=== PATIENT | male | born 1975 | race African-American/Black ===

== ENCOUNTER 2017-08-19 09:50 | Emergency (ER) | payer MEDICAID ==
[~2017-08-19] VITALS: Ht 170.2 cm; Wt 143.0 kg
[2017-08-19] MEDS ORDERED: HYDR12.529 PO (10:02)
[2017-08-19] MEDS ORDERED: ASPI-1159 PO (10:02)
[2017-08-19] MEDS ORDERED: AMLO2.5T45 PO (10:02)
[2017-08-19 14:51] VITALS: BP 151/90
== END 2017-08-19 14:57 | disposition home or self-care (01) ==
LOC: ER 09:50
DX: R22.0 Localized swelling, mass and lump, head (principal); I10 Essential (primary) hypertension; F17.200 Nicotine dependence, unspecified, uncomplicated; F12.10 Cannabis abuse, uncomplicated; Z79.82 Long term (current) use of aspirin
CPT/HCPCS: 76536; 99284

== ENCOUNTER 2022-10-04 14:37 | Emergency (ER) | payer MEDICAID ==
[~2022-10-04] VITALS: Ht 170.2 cm; Wt 154.0 kg
[~2022-10-04 14:37] MED LIST: AMLO2.5T45 PO; ASPI-1497 PO; HYDR12.529 PO
[2022-10-04 14:47] VITALS: BP 189/102
[2022-10-04] MEDS ORDERED: LACTULOSE 20G/30ML UDC PO ONE (15:15)
[2022-10-04] MEDS ORDERED: DOCU-155 MT (15:16)
[2022-10-04] MEDS ORDERED: POLY17PO3 MT (15:16)
[2022-10-04] MEDS ORDERED: [UNRECOGNIZED DRUG - CODE] RC (15:16)
== END 2022-10-04 15:32 | disposition home or self-care (01) ==
LOC: ER 14:37
DX: K59.00 Constipation, unspecified (principal); F12.10 Cannabis abuse, uncomplicated; I12.9 Hypertensive chronic kidney disease with stage 1 through stage 4 chronic kidney disease, or unspecified chronic kidney disease; N18.9 Chronic kidney disease, unspecified
CPT/HCPCS: 99283

== ENCOUNTER 2022-10-14 17:16 | Emergency (ER) | payer MEDICAID, OTHER ==
[~2022-10-14] VITALS: Ht 170.2 cm; Wt 149.7 kg
[~2022-10-14 17:16] MED LIST changes: +DOCU-155 MT; +POLY17PO3 MT; +[UNRECOGNIZED DRUG - CODE] RC
[2022-10-14 17:29] VITALS: O2SAT 98
[2022-10-14 19:25] LABS: BASOPHILS % 0.9 % (0.0-2.0); EOSINOPHILS % 1.4 % (0.0-5.0); HEMATOCRIT. 40.8 % (42.0-52.0); HEMOGLOBIN. 13.7 g/dL (14.0-18.0); LYMPHOCYTES % 32.5 % (20.0-50.0); MEAN CORPUSCULAR HEMOGLOBIN 29.7 pg (28.0-32.0); MEAN CORPUSCULAR VOLUME 88.7 fL (80.0-94.0); MEAN PLATELET VOLUME 10.5 fl (7.4-10.4); MONOCYTES % 10.6 % (2.0-8.0); NEUTROPHILS % 54.6 % (40.0-76.0); PLATELET 265 x1000/uL (130-400); RED CELL DISTRIBUTION WIDTH 14.1 % (11.6-14.6)
[2022-10-14 19:32] LABS: CHLORIDE 105 mEq/L (98-107)
[2022-10-14] MEDS ORDERED: LACTULOSE 20G/30ML UDC PO ONE (20:30)
[2022-10-14] MEDS ORDERED: POLYETHYLENE GLYCOL 3350 (17GM) 1 DOSE PACK PO ONE (20:30)
[2022-10-14] MEDS ORDERED: DOCU-155 MT (21:16)
[2022-10-14] MEDS ORDERED: SENN-178 MT (21:16)
[2022-10-14 21:50] VITALS: BP 155/92; PULSE 75; RESP 15; TEMP 98.4
== END 2022-10-14 22:00 | disposition home or self-care (01) ==
LOC: ER 17:16
DX: K59.00 Constipation, unspecified (principal); I12.0 Hypertensive chronic kidney disease with stage 5 chronic kidney disease or end stage renal disease; N18.6 End stage renal disease; F12.10 Cannabis abuse, uncomplicated; Z79.899 Other long term (current) drug therapy
CPT/HCPCS: 36415; 74018; 80053; 85025; 99284; Z7610